=== PATIENT | female | born 1985 | race Caucasian/White ===

== ENCOUNTER 2017-03-01 06:09 | Inpatient (IN) | payer OTHER ==
[~2017-03-01] VITALS: Ht 154.9 cm; Wt 59.9 kg
[~2017-03-01 06:09] MED LIST: COLACE 100MG C100 MG PO; IBUPROFEN600 MG PO; SUBUTEX 8 MG TAB8 MG SL
[2017-03-01 06:44] LABS: RED BLOOD COUNT 3.76 M/UL (4.00-5.10)
[2017-03-01 06:59] LABS: WHITE BLOOD COUNT 16.2 K/UL (4.5-11.0)
[2017-03-02 03:04] LABS: HEMOGLOBIN 10.6 gm/dl (12.3-15.3)
== END 2017-03-03 10:05 | disposition home or self-care (01) | DRG 774 ==
LOC: OB 06:09
PROVIDERS: ADMIT Obstetrics & Gynecology
PROC: 10E0XZZ Delivery of Products of Conception, External Approach (ICD-10-PCS; principal; 2017-03-01)
PROC: 10907ZC Drainage of Amniotic Fluid, Therapeutic from Products of Conception, Via Natural or Artificial Opening (ICD-10-PCS; 2017-03-01)
PROC: 3E0234Z Introduction of Serum, Toxoid and Vaccine into Muscle, Percutaneous Approach (ICD-10-PCS; 2017-03-01)
DX: O98.42 Viral hepatitis complicating childbirth (principal); O99.324 Drug use complicating childbirth; B19.20 Unspecified viral hepatitis C without hepatic coma; O99.334 Smoking (tobacco) complicating childbirth; F17.210 Nicotine dependence, cigarettes, uncomplicated; O75.89 Other specified complications of labor and delivery; M79.7 Fibromyalgia; R42 Dizziness and giddiness; G56.30 Lesion of radial nerve, unspecified upper limb; L93.0 Discoid lupus erythematosus; D69.6 Thrombocytopenia, unspecified; F11.10 Opioid abuse, uncomplicated; Z3A.39 39 weeks gestation of pregnancy; Z37.0 Single live birth; Z88.8 Allergy status to other drugs, medicaments and biological substances; Z82.79 Family history of other congenital malformations, deformations and chromosomal abnormalities; Z80.49 Family history of malignant neoplasm of other genital organs; Z82.49 Family history of ischemic heart disease and other diseases of the circulatory system; Z23 Encounter for immunization
CPT/HCPCS: 36415; 51702; 80307; 81001; 82800; 85014; 85018; 85025; 90715; J3010; J7120